=== PATIENT | female | born 1965 | race Caucasian/White ===

== ENCOUNTER 2024-01-13 14:04 | Outpatient (CLI) | payer OTHER ==
[2024-01-13 15:24] LABS: #Basophils 0.06 10x3/uL (0.0-0.2); #Eosinphils 0.64 10x3/uL (0.0-0.5); #Monocytes 0.32 10x3/uL (0.0-1.1); #Neutrophils 1.11 10x3/uL (1.5-8.4); %Basophils 1.6 % (0.0-2.0); %Eosinophils 17.4 % (0.0-6.0); %Monocytes 8.7 % (0.0-10.0); %Neutrophils 30.3 % (40.0-75.0); Mean Corpuscular HGB CONC 33.3 g/dL (32.0-36.0); Mean Corpuscular Hemoglobin 32.7 pg (27.0-33.0); Mean Corpuscular Volume 98.2 fL (81.6-98.3); Platelet Count 194 10x3/uL (150-450); RBC Distribution Width 13.9 % (11.5-14.5); Red Blood Cell (RBC) Count 3.97 10x6/uL (3.90-5.03); White Blood Cell (WBC) Count 3.7 10x3/uL (3.5-10.5)
[2024-01-13 15:29] LABS: Anion Gap 14 mmol/L (10-20); BUN (Urea Nitrogen) 12 mg/dL (9.8-20.1); Calc. Creatinine Clearance 0 mL/min (70-130); Calcium 9.9 mg/dL (7.8-10.44); Carbon Dioxide 25 mmol/L (22-29); Chloride 109 mmol/L (98-107); Estimated GFR 85; Glucose 99 mg/dL (70-105); Potassium 3.8 mmol/L (3.5-5.1); Sodium 144 mmol/L (136-145)
== END 2024-01-13 14:05 | disposition home or self-care (01) ==
LOC: CSHLAB 14:04
PROVIDERS: ATTEND Specialist
DX: Z01.812 Encounter for preprocedural laboratory examination (principal); C50.911 Malignant neoplasm of unspecified site of right female breast
CPT/HCPCS: 80048; 85025